=== PATIENT | female | born 2000 | race American Indian/Alaskan Native ===

== ENCOUNTER 2021-03-13 12:10 | Emergency (ER) | payer BC ==
[2021-03-13 12:43] LABS: Basophils % (Auto) 0.7 % (0.0-1.8); Eosinophils # (Auto) 0.2 K/mm3 (0.0-0.4); Eosinophils % (Auto) 4.4 % (0.0-4.3); Hematocrit 38.3 % (30.3-42.9); Hemoglobin 12.2 gm/dl (10.1-14.3); Lymphocytes # (Auto) 1.6 K/mm3 (1.2-5.4); Lymphocytes % (Auto) 44.3 % (13.4-35.0); Mean Corpuscular HGB Conc 32 % (30-34); Monocytes # (Auto) 0.4 K/mm3 (0.0-0.8); Monocytes % (Auto) 10.9 % (0.0-7.3); Platelet Count 430 K/mm3 (140-440); Red Blood Count 6.12 M/mm3 (3.65-5.03); Red Cell Distribution Width 17.5 % (13.2-15.2)
[2021-03-13 13:04] LABS: Blood Urea Nitrogen 5 mg/dL (7-17); Calcium 9.5 mg/dL (8.4-10.2); Hemolysis Index 0
[2021-03-13 13:05] LABS: Mean Corpuscular Volume 63 fl (79-97)
[2021-03-13 13:08] LABS: Bilirubin,Urine NEG (Negative); Blood,Urine SM (Negative); Color,Urine Yellow (Yellow); Mucus,Urine 3+ /HPF; Urobilinogen,Urine < 2.0 mg/dL (<2.0)
[2021-03-13 13:10] LABS: Amphetamine Screen,Urine Negative; Benzodiazepines Screen,Urine Negative; Cannabinoid Screen,Urine Negative; Cocaine Screen,Urine Negative; Methadone Screen,Urine Negative; Opiate Screen,Urine Negative
[2021-03-13 13:24] LABS: HCG Qualitative,Urine Negative (Negative)
[2021-03-13 13:35] LABS: BUN/Creatinine Ratio 8
--- NOTE | 2021-03-13 13:50 | Emergency Department Report ---
ED Psych HPI - General Chief Complaint: Psych Stated Complaint: MENTAL HEALTH EVAL Time Seen by Provider: 03/13/21 12:17 Source: patient Mode of arrival: Ambulatory - History of Present Illness Initial Comments: Patient is a 20-year-old F [place] female who is presenting with suicidal ideations. Patient states she has multiple social and financial stressors lately and has given up hope that anything will get better and she states she wants to kill herself. She does not have a definitive plan. States she does want help before she commit suicide. Denies homicidal ideations auditory visual hallucinations at this time. Denies any drug or alcohol abuse. - Related Data Allergies Allergy/AdvReac Type Severity Reaction Status Date / Time No Known Allergies Allergy Unverified 03/13/21 12:12 ED Review of Systems ROS: Stated complaint: MENTAL HEALTH EVAL Other details as noted in HPI Comment: All other systems reviewed and negative ED Past Medical Hx - Past Medical History Hx Psychiatric Treatment: Yes (DEPRESSION AND ANXIETY) Additional medical history: " im not sure." - Surgical History Past Surgical History?: No ED Physical Exam - General Limitations: No Limitations General appearance: alert, in no apparent distress - Head Head exam: Present: atraumatic, normocephalic - Eye Eye exam: Present: normal appearance - ENT ENT exam: Present: mucous membranes moist - Neck Neck exam: Present: normal inspection - Respiratory Respiratory exam: Present: normal lung sounds bilaterally. Absent: respiratory distress - Cardiovascular Cardiovascular Exam: Present: regular rate, normal rhythm. Absent: systolic murmur, diastolic murmur, rubs, gallop - GI/Abdominal GI/Abdominal exam: Present: soft, normal bowel sounds. Absent: distended, tenderness, guarding, rebound - Extremities Exam Extremities exam: Present: normal inspection - Back Exam Back exam: Present: normal inspection - Neurological Exam Neurological exam: Present: alert, oriented X3 - Psychiatric Psychiatric exam: Present: normal affect, depressed - Skin Skin exam: Present: warm, dry, intact, normal color. Absent: rash ED Course Vital Signs 03/13/21 03/13/21 03/14/21 12:14 12:43 08:30 Temperature 99.2 F 98.0 F 98.0 F Pulse Rate 89 88 62 Respiratory 20 20 18 Rate Blood Pressure 136/87 Blood Pressure 143/88 113/60 [Left] O2 Sat by Pulse 97 98 96 Oximetry - Reevaluation(s) Reevaluation #1: 03/13/21 13:50 Patient is medically cleared for psychiatric evaluation. Reevaluation #2: 03/13/21 19:24 ANGELA HILLMAN Female : 2000 [facility]# [id number] 03/13/21 17:24 - MH Page Technician's Note by KIRSTY CHO Acct Num: [id number] : 2000 Patient Age: 20 MENTAL HEALTH ASSESSMENT COMPLETED: Pt is a 20 year old AA female; Per triage note, "C/O SI THOUGHTS -3 WEEKS. NO PLAN. TEARFUL IN TRIAGE." Pt has a mental health diagnosis of Depression and anxiety. Pt states, "I just saw started seeing someone; her name is Jayda; I talk to her; this is just my second session." Pt is not prescribed any psyc meds. Pt has no history of inpatient psyc admissions. Pt reports that her mother has Schizophrenia and was diagnosed at 21. Pt resides alone in an apartment; pt is employed at [employer]. "I have alot of social anxiety, and I feel like I'm getting judged, and I end up leaving as soon as that starts." "So, I can't even go to work anymore." Pt is single with no children. Pt was arrested December 2020; " I went off on my friend for not paying rent; it was verbal, but the sheet metal shop foreman saw it as a threat." Pt is not currently on probation.Pt denies any substance use (current or past). Pt states she called [employer], "because the past two days I've been having panic attacks and thinking about my past and stuff and wanting to hurt myself." Pt endorses thoughts of harming self. Pt states suicidal thoughts have been happening "for years," but recently the suicidal thoughts have increased where pt is unable to control them; stressors due to "bills, living alone, not having a good support." Pt has no history of suicide attempts in the past. Pt states that if she hadn't taken [employer] to the hospital she would have harmed herself. Pt denies any thoughts or plans to harm others. Pt is calm and cooperative during assessment. Pt is alert and oriented x 4. Pt denies AH or VH. Pt expresses she has severe anxiety and paranoia; "I feel like people are talking to me, but I know they aren't talking about me, but then it makes my anxiety really high." Pt reports anxiety and depression is so severe, "I just stay inside and stay in the bed." RECOMMENDATION: Pt meets criteria for inpatient/1013 as pt reports suicidal thoughts that are becoming uncontrollable; pt reports if she would not have came to the hospital she believes she would have harmed herself. Pt requesting help. Kirsty Crenshaw LPC Initialized on 03/13/21 17:24 - END OF NOTE Reevaluation #3: 03/14/21 12:12 Patient has been accepted to [facility]. Reevaluation #4: 03/14/21 12:13 Psychiatric Consult Note Patient Name: ANGELA HILLMAN Date of : [birth year] Patient Status: Emergency Emergency Provider: JAMIE SALTER Date: 03/14/21 10:52 Initialization Date: 03/14/21 10:52 History of Present Illness - Reason for Consult Consult date: 03/14/21 Reason for consult: SI - History of Present Psychiatric Illness ED Note:Patient is a 20-year-old F [place] female who is presenting with suicidal ideations. Patient states she has multiple social and financial stressors lately and has given up hope that anything will get better and she states she wants to kill herself. She does not have a definitive plan. States she does want help before she commit suicide. Denies homicidal ideations auditory visual hallucinations at this time. Denies any drug or alcohol abuse. Angela Hillman is a 20 year old female with history of depression and anxiety disorder. The patient reports that she stopped taking psychotropic medications a bout 4 years ago. She reports having panic attack a few days ago which she states " it happens every few months; it came out of no where." She states that she gets anxious in front of people; unable to have public interactions. The patient denies any current suicidal ideation and denies hallucinations. PAST PSYCHIATRIC HISTORY Diagnoses: Depression/ anxiety Suicide attempts or Self-harm behavior: Denies Prior psychiatric hospitalizations: Denies Substance Abuse history: Denies Previous psychiatric medications tried: unable to recall Outpatient treatment: Denies PAST MEDICAL HISTORY: Family Psychiatric History: None reported or documented SOCIAL HISTORY Marital Status: Single Living Arrangements:Lives alone Employment Status: employed Access to guns/weapons:Denies Education: some college History of Abuse: yes Legal History: Unknown REVIEW OF SYSTEMS Constitutional: Negative for weight loss ENT: Negative for stridor Respiratory: Negative for cough or hemoptysis All other systems reviewed and are negative MENTAL STATUS EXAMINATION General Appearance and Behavior: Age appropriate, good hygiene, wearing appropriate clothes, good eye contact, cooperative with questioning Cooperation: Participating/engaged Psychomotor Behavior: unremarkable and within normal limits Mood:"ok" Affect and affective range: congruent with mood Thought Process:goal directed Thought Content: Not suicidal Speech: Normal volume, Regular rate and rhythm. Intellectual Functioning: Average Suicidal Ideation: Denies Homicidal Ideation: Denies Hallucinations: Denies Delusions: None elicited Impulse Control: Limited Insight and Judgment: limited insight and fair judgment Memory: Normal Attention: Normal Orientation: Alert, oriented. Assessment and Plan (1) Major depressive disorder Current Visit: No Status: Acute RECOMMENDATIONS continue 1013 Risks, benefits and alternatives of medications discussed with the patient, questions answered and consent obtained from patient. PSYCHOTHERAPY: Supportive psychotherapy provided MEDICAL: Per primary team DELIRIUM PRECAUTIONS: Please re-orient patient frequently, keep lights on during the day, and minimize benzodiazepines and opiates as these medications could worsen patient's confusion. TEST CAR DRIVER: non indicated DISPOSITION: Recommend acute inpatient psychiatric hospitalization at this time. FOLLOW-UP: Will follow. Thank you for the consult. Please contact with any questions and/or concerns. ED Medical Decision Making - Lab Data Result diagrams: 03/13/21 12:28 03/13/21 12:28 Lab Results 03/13/21 03/13/21 03/13/21 Range/Units 12:28 12:28 12:28 WBC (4.5-11.0) K/mm3 RBC (3.65-5.03) M/mm3 Hgb (10.1-14.3) gm/dl Hct (30.3-42.9) % MCV (79-97) fl MCH (28-32) pg MCHC (30-34) % RDW (13.2-15.2) % Plt Count (140-440) K/mm3 Lymph % (Auto) (13.4-35.0) % [place] % (Auto) (0.0-7.3) % Eos % (Auto) (0.0-4.3) % Baso % (Auto) (0.0-1.8) % Lymph # (Auto) (1.2-5.4) K/mm3 [place] # (Auto) (0.0-0.8) K/mm3 Eos # (Auto) (0.0-0.4) K/mm3 Baso # (Auto) (0.0-0.1) K/mm3 Seg Neutrophils % (40.0-70.0) % Seg Neutrophils # (1.8-7.7) K/mm3 Sodium 138 (137-145) mmol/L Potassium 4.0 (3.6-5.0) mmol/L Chloride 103.9 (98-107) mmol/L Carbon Dioxide 22 (22-30) mmol/L Anion Gap 16 mmol/L BUN 5 L (7-17) mg/dL Creatinine 0.6 (0.6-1.2) mg/dL Estimated GFR > 60 ml/min BUN/Creatinine Ratio 8 % Glucose 104 H (65-100) mg/dL Calcium 9.5 (8.4-10.2) mg/dL Urine Color (Yellow) Urine Turbidity (Clear) Urine pH (5.0-7.0) Ur Specific [place] (1.003-1.030) Urine Protein (Negative) mg/dL Urine Glucose (UA) (Negative) mg/dL Urine Ketones (Negative) mg/dL Urine Blood (Negative) Urine Nitrite (Negative) Urine Bilirubin (Negative) Urine Urobilinogen (<2.0) mg/dL Ur Leukocyte Esterase (Negative) Urine WBC (Auto) (0.0-6.0) /HPF Urine RBC (Auto) (0.0-6.0) /HPF U Epithel Cells (Auto) (0-13.0) /HPF Urine Mucus /HPF Urine HCG, Qual (Negative) Salicylates < 0.3 L (2.8-20.0) mg/dL Urine Opiates Screen Urine Methadone Screen Ur Barbiturates Screen Ur Phencyclidine Scrn Ur Amphetamines Screen U Benzodiazepines Scrn Urine Cocaine Screen U Marijuana (THC) Screen Drugs of Abuse Note Plasma/Serum Alcohol < 0.01 (0-0.07) % 11/11/21 11/11/21 11/11/21 Range/Units 12:28 Unknown Unknown WBC 3.6 L (4.5-11.0) K/mm3 RBC 6.12 H (3.65-5.03) M/mm3 Hgb 12.2 (10.1-14.3) gm/dl Hct 38.3 (30.3-42.9) % MCV 63 L (79-97) fl MCH 20 L (28-32) pg MCHC 32 (30-34) % RDW 17.5 H (13.2-15.2) % Plt Count 430 (140-440) K/mm3 Lymph % (Auto) 44.3 H (13.4-35.0) % Moca % (Auto) 10.9 H (0.0-7.3) % Eos % (Auto) 4.4 H (0.0-4.3) % Baso % (Auto) 0.7 (0.0-1.8) % Lymph # (Auto) 1.6 (1.2-5.4) K/mm3 [place] # (Auto) 0.4 (0.0-0.8) K/mm3 Eos # (Auto) 0.2 (0.0-0.4) K/mm3 Baso # (Auto) 0.0 (0.0-0.1) K/mm3 Seg Neutrophils % 39.7 L (40.0-70.0) % Seg Neutrophils # 1.4 L (1.8-7.7) K/mm3 Sodium (137-145) mmol/L Potassium (3.6-5.0) mmol/L Chloride (98-107) mmol/L Carbon Dioxide (22-30) mmol/L Anion Gap mmol/L BUN (7-17) mg/dL Creatinine (0.6-1.2) mg/dL Estimated GFR ml/min BUN/Creatinine Ratio % Glucose (65-100) mg/dL Calcium (8.4-10.2) mg/dL Urine Color Yellow (Yellow) Urine Turbidity Slightly-cloudy (Clear) Urine pH 5.0 (5.0-7.0) Ur Specific [place] 1.024 (1.003-1.030) Urine Protein 30 mg/dl (Negative) mg/dL Urine Glucose (UA) Neg (Negative) mg/dL Urine Ketones Neg (Negative) mg/dL Urine Blood Sm (Negative) Urine Nitrite Neg (Negative) Urine Bilirubin Neg (Negative) Urine Urobilinogen < 2.0 (<2.0) mg/dL Ur Leukocyte Esterase Neg (Negative) Urine WBC (Auto) 4.0 (0.0-6.0) /HPF Urine RBC (Auto) 27.0 (0.0-6.0) /HPF U Epithel Cells (Auto) 9.0 (0-13.0) /HPF Urine Mucus 3+ /HPF Urine HCG, Qual Negative (Negative) Salicylates (2.8-20.0) mg/dL Urine Opiates Screen Negative Urine Methadone Screen Negative Ur Barbiturates Screen Negative Ur Phencyclidine Scrn Negative Ur Amphetamines Screen Negative U Benzodiazepines Scrn Negative Urine Cocaine Screen Negative U Marijuana (THC) Screen Negative Drugs of Abuse Note Disclamer Plasma/Serum Alcohol (0-0.07) % Critical care attestation.: If time is entered above; I have spent that time in minutes in the direct care of this critically ill patient, excluding procedure time. ED Disposition Clinical Impression: Major depression, Suicidal ideations Disposition: [address] [place] [address] Is pt being admited?: No Does the pt Need Aspirin: No Condition: Stable Referrals: PRIMARY CARE, [Primary Care Provider] - 3-5 Days Time of Disposition: 12:14
[2021-03-13] MEDS ORDERED: LORazepam 1 MG TAB PO ONE (15:03)
[2021-03-14 08:32] VITALS: BP 113/60
--- NOTE | 2021-03-14 10:57 | Consultation ---
History of Present Illness - Reason for Consult Consult date: 03/14/21 Reason for consult: SI - History of Present Psychiatric Illness ED Note:Patient is a 20-year-old F [place] female who is presenting with suicidal ideations. Patient states she has multiple social and financial stressors lately and has given up hope that anything will get better and she states she wants to kill herself. She does not have a definitive plan. States she does want help before she commit suicide. Denies homicidal ideations auditory visual hallucinations at this time. Denies any drug or alcohol abuse. Angela Hillman is a 20 year old female with history of depression and anxiety disorder. The patient reports that she stopped taking psychotropic medications about 4 years ago. She reports having panic attack a few days ago which she states " it happens every few months; it came out of no where." She states that she gets anxious in front of people; unable to have public interactions. The patient denies any current suicidal ideation and denies hallucinations. PAST PSYCHIATRIC HISTORY Diagnoses: Depression/ anxiety Suicide attempts or Self-harm behavior: Denies Prior psychiatric hospitalizations: Denies Substance Abuse history: Denies Previous psychiatric medications tried: unable to recall Outpatient treatment: Denies PAST MEDICAL HISTORY: Family Psychiatric History: None reported or documented SOCIAL HISTORY Marital Status: Single Living Arrangements:Lives alone Employment Status: employed Access to guns/weapons:Denies Education: some college History of Abuse: yes Legal History: Unknown REVIEW OF SYSTEMS Constitutional: Negative for weight loss ENT: Negative for stridor Respiratory: Negative for cough or hemoptysis All other systems reviewed and are negative MENTAL STATUS EXAMINATION General Appearance and Behavior: Age appropriate, good hygiene, wearing appropriate clothes, good eye contact, cooperative with questioning Cooperation: Participating/engaged Psychomotor Behavior: unremarkable and within normal limits Mood:"ok" Affect and affective range: congruent with mood Thought Process:goal directed Thought Content: Not suicidal Speech: Normal volume, Regular rate and rhythm. Intellectual Functioning: Average Suicidal Ideation: Denies Homicidal Ideation: Denies Hallucinations: Denies Delusions: None elicited Impulse Control: Limited Insight and Judgment: limited insight and fair judgment Memory: Normal Attention: Normal Orientation: Alert, oriented. Assessment and Plan (1) Major depressive disorder Current Visit: No Status: Acute RECOMMENDATIONS continue 1013 Risks, benefits and alternatives of medications discussed with the patient, questions answered and consent obtained from patient. PSYCHOTHERAPY: Supportive psychotherapy provided MEDICAL: Per primary team DELIRIUM PRECAUTIONS: Please re-orient patient frequently, keep lights on during the day, and minimize benzodiazepines and opiates as these medications could worsen patient's confusion. TWISTING MACHINE OPERATOR: non indicated DISPOSITION: Recommend acute inpatient psychiatric hospitalization at this time. FOLLOW-UP: Will follow. Thank you for the consult. Please contact with any questions and/or concerns. Medications and Allergies Allergies Medications and Allergies Allergies Allergy/AdvReac Type Severity Reaction Status Date / Time No Known Allergies Allergy Unverified 03/13/21 12:12 Mental Status Exam - Vital signs Last Vital Signs Temp 98.0 F 03/14/21 08:30 Pulse 62 03/14/21 08:30 Resp 18 03/14/21 08:30 BP 113/60 03/14/21 08:30 Pulse Ox 96 03/14/21 08:30 Results Result Diagrams: 03/13/21 12:28 03/13/21 12:28 Abnormal lab results 03/13/21 03/13/21 03/13/21 Range/Units 12:28 12:28 12:28 WBC (4.5-11.0) K/mm3 RBC (3.65-5.03) M/mm3 MCV (79-97) fl MCH (28-32) pg RDW (13.2-15.2) % Lymph % (Auto) (13.4-35.0) % [place] % (Auto) (0.0-7.3) % Eos % (Auto) (0.0-4.3) % Seg Neutrophils % (40.0-70.0) % Seg Neutrophils # (1.8-7.7) K/mm3 BUN 5 L (7-17) mg/dL Glucose 104 H (65-100) mg/dL Salicylates < 0.3 L (2.8-20.0) mg/dL Acetaminophen 5.0 L (10.0-30.0) ug/mL 03/13/21 Range/Units 12:28 WBC 3.6 L (4.5-11.0) K/mm3 RBC 6.12 H (3.65-5.03) M/mm3 MCV 63 L (79-97) fl MCH 20 L (28-32) pg RDW 17.5 H (13.2-15.2) % Lymph % (Auto) 44.3 H (13.4-35.0) % [place] % (Auto) 10.9 H (0.0-7.3) % Eos % (Auto) 4.4 H (0.0-4.3) % Seg Neutrophils % 39.7 L (40.0-70.0) % Seg Neutrophils # 1.4 L (1.8-7.7) K/mm3 BUN (7-17) mg/dL Glucose (65-100) mg/dL Salicylates (2.8-20.0) mg/dL Acetaminophen (10.0-30.0) ug/mL All other labs normal.
[2021-03-14] MEDS ORDERED: LORazepam 1 MG TAB PO ONE (16:57)
== END 2021-03-14 17:13 ==
LOC: ED 12:10
DX: F32.9 Major depressive disorder, single episode, unspecified (principal); R45.851 Suicidal ideations; Z20.822 Contact with and (suspected) exposure to COVID-19; F41.9 Anxiety disorder, unspecified; Z79.899 Other long term (current) drug therapy
CPT/HCPCS: 36415; 80048; 80307; 81001; 81025; 85025; 99285; U0003; 80320; G0480